=== PATIENT | male | born 1940 | race Caucasian/White ===

== ENCOUNTER 2020-10-01 14:25 | Inpatient (IN) | payer MEDICARE, OTHER ==
[2020-10-01 16:49] LABS: BASOPHIL 0.3 % (0-2); EOSINOPHIL 0 % (0-7); HCT 31.6 % (42.0-52.0); HGB 10.3 g/dl (13.2-18.0); LYMPHOCYTE 3.9 % (15-48); MCH 29.1 pg (25.0-31.0); MCHC 32.6 g/dL (32.0-36.0); MCV 89.3 fL (78.0-100.0); MONOCYTE 5.3 % (0-12); MPV 9.9 fL (6.0-9.5); NEUTROPHIL 89.2 % (41-80); NRBC 0; PLT 415 K/uL (150-400); RBC 3.54 M/uL (4.70-6.00); RDW 13.9 % (11.5-14.0); WBC 17.6 K/uL (4.0-10.5)
[2020-10-01 17:06] LABS: ALBUMIN 2.6 g/dL (3.4-5.0); ALKALINE PHOSHATASE 68 U/L (46-116); ALT 19 U/L (16-63); AST 33 U/L (15-37); BILIRUBIN - TOTAL 0.4 mg/dL (0.2-1.0); BUN 63 mg/dL (7-18); BUN/CREAT RATIO (CALC) 25.7 RATIO; C-REACTIVE PROTEIN >18.00 mg/dL (<=0.90); CHLORIDE 105 mmol/L (98-107); CO2 (BICARBONATE) 20 mmol/L (21-32); CREATININE 2.45 mg/dL (0.67-1.17); GLOBULIN (CALCULATION) 4.7 g/dL; GLUCOSE 123 mg/dL (74-106); LDH 601 U/L (85-227); MAGNESIUM 2.3 mg/dL (1.8-2.4); POTASSIUM 4.3 mmol/L (3.5-5.1); TOTAL PROTEIN 7.3 g/dL (6.4-8.2)
[2020-10-01 17:11] LABS: LACTIC ACID 1.1 mmol/L (0.4-1.9)
[2020-10-01 17:13] LABS: PRO-BNP 9437 pg/mL (<450)
[2020-10-01] MEDS ORDERED: VITAMIN B-121000 MC1 PO (20:18)
[2020-10-01] MEDS ORDERED: VITAMIN D250 MCG PO (20:18)
[2020-10-01] MEDS ORDERED: ANTIVERT12.5 MG PO (20:19)
[2020-10-01] MEDS ORDERED: SLOW FE142 MG PO (20:20)
[2020-10-01] MEDS ORDERED: ATIVAN1 MG PO (20:20)
[2020-10-01] MEDS ORDERED: ASPIRIN EC81 M1 PO (20:21)
[2020-10-01] MEDS ORDERED: SIMVASTATIN80 MG PO (20:22)
[2020-10-01] MEDS ORDERED: NITROQUIK SL0.4 MG SL (20:23)
[2020-10-01] MEDS ORDERED: PEPCID AC20 MG PO (20:26)
[2020-10-01] MEDS ORDERED: TENORMIN50 MG PO (20:27)
[2020-10-01] MEDS ORDERED: LOTREL 5-20 MG1 EACH PO (20:29)
--- NOTE | 2020-10-01 23:36 | NUR ---
PATIENT CHANGED FROM NC TO 50% VENTURI BY PREVIOUS SHIFT NURSE DURING REPORT DUE TO DESAT TO 75%, HAS PULLED OFF MASK OVER 12 TIMES REQUIRING STAFF REPLACING AND CONTINUOUS CHECKING. PLACED ON HIGH FLOW PER DR WANG REQUEST MAYBE HE WILL KEEP THAT ON BETTER, WAS DONE BUT SATS DID NOT MAINTAIN AND DROPPED TO 82% SO VENTURI WAS PLACED BACK ON AND SATS STAY 91-93% WHEN PATIENT LEAVES MASK ON. STAFF MEMBER PLACED AT BEDSIDE TO KEEP MASK ON. CONSTANTLY PULLING AT TUBING, TYING MASK TO O2 LINE AND PULLING MONITOR BOX APART. WILL CONTINUE WITH STAFF IN ROOM TO MONITOR
[2020-10-02 06:43] LABS: BASOPHIL 0.3 % (0-2); EOSINOPHIL 0 % (0-7); HCT 32.2 % (42.0-52.0); LYMPHOCYTE 3.3 % (15-48); MCH 29.2 pg (25.0-31.0); MCHC 31.1 g/dL (32.0-36.0); MCV 94.2 fL (78.0-100.0); MONOCYTE 1.8 % (0-12); MPV 10.3 fL (6.0-9.5); NRBC 0; PLT 391 K/uL (150-400); RBC 3.42 M/uL (4.70-6.00); RDW 14.6 % (11.5-14.0); WBC 14.6 K/uL (4.0-10.5)
[2020-10-02 07:02] LABS: NEUTROPHIL 93.2 % (41-80)
[2020-10-02 07:04] LABS: BUN/CREAT RATIO (CALC) 29.5 RATIO; C-REACTIVE PROTEIN 16.7 mg/dL (<=0.90); CREATININE 2.24 mg/dL (0.67-1.17); POTASSIUM 4.3 mmol/L (3.5-5.1)
--- NOTE | 2020-10-03 02:50 | NUR ---
PRACTITIONER ENTERED ROOM TO ASSESS PATIENT, O2 SATS RANGING FROM 74-89 BUT PATIENT RESTLESS AND THINKS HE'S DRIVING A CAR PUSHING ON GAS PEDAL. SHE STATED HE WAS DELERIUS AND SHE WAS TRANSFERRING HIM TO THE UNIT
--- NOTE | 2020-10-03 22:00 | NUR ---
PT OXYGEN SATURATION 77-80% ON HIGH FLOW 40L @ 100%, PT CLIMBING OUT OF BED, CONFUSED, ACTIVE HALLUCINATIONS AT THIS TIME, SPEAKING OUT OF HEAD, GARBLED SPEECH, CALLING OUT TO GOD, 2200 PO 1MG ATIVAN GIVEN CRUSHED IN APPLE SAUCE, BRILLIANDEER LOOPER CONSULTED REGARDING ACTIVITY AND OXYGEN SATURATION, BRILLIANDEER LOOPER SAID TO MONITOR FOR NEXT HOUR WHILE ATIVAN ABSORBS, GIVE IVP 0.5MG ATIVAN AFTER ONE HOUR IF PT DOES NOT CALM DOWN AND OXYGEN SATURATION STAYS LOW DUE TO ACTIVITY, WILL REASSESS IN ONE HOUR TIME
--- NOTE | 2020-10-04 01:07 | NUR ---
10/04/20 0045 PT PULLING OXYGEN OFF, STRIKING OUT AT SITTER WHEN SITTER ATTEMPTS TO REAPPLY OXYGEN, PT HAS HIGH FLOW STILL ON, PT SATING AT 84% RIVER CAPTAIN CALLED, RIVER CAPTAIN ORDERED HALODOL AND MITTENS TO BE PLACED ON PT, PT HAS SOCKS WITH COBAN WRAPPED UP TO ELBOWS, PT IS CALMING DOWN, HALODOL HELD AT THIS TIME, WILL CONTINUE TO MONITOR
--- NOTE | 2020-10-04 05:27 | NUR ---
AUTOMATIC PAINT SPRAYER OPERATOR CALLED, PT STILL STRIKING OUT WHEN PLACING OXYGEN BACK ON PT, RN ASKED AUTOMATIC PAINT SPRAYER OPERATOR ABOUT DRAWING LABS, AUTOMATIC PAINT SPRAYER OPERATOR TO NOT DRAW AT THIS TIME
[2020-10-04 09:44] LABS: BASOPHIL 0.3 % (0-2); EOSINOPHIL 0 % (0-7); HCT 35.3 % (42.0-52.0); HGB 11.4 g/dl (13.2-18.0); LYMPHOCYTE 2.6 % (15-48); MCHC 32.3 g/dL (32.0-36.0); MCV 89.8 fL (78.0-100.0); MONOCYTE 2.3 % (0-12); MPV 10.7 fL (6.0-9.5); NEUTROPHIL 92.8 % (41-80); NRBC 0; PLT 460 K/uL (150-400); RBC 3.93 M/uL (4.70-6.00); RDW 14.6 % (11.5-14.0); WBC 17.5 K/uL (4.0-10.5)
[2020-10-04 10:38] LABS: C-REACTIVE PROTEIN 15.1 mg/dL (<=0.90); CREATININE 1.96 mg/dL (0.67-1.17); PHOSPHORUS 4.9 mg/dL (2.6-4.7)
--- NOTE | 2020-10-04 10:50 | NUR ---
DR. SPEARS CALLED TO ROOM AT THIS TIME PT IS BECOMING INCREASINGLY RESTLESS, PULLING AT OXYGEN/ESSENTIAL LINES/TUBES, THROWING LEGS OVER BED. STATED NAME AND FOR THIS RN BUT ALL THE REST OF THE TIME GARBLED/CONFUSED SPEECH. ASKED MD IF HE THOUGHT SOME MENTAL STATUS CHANGES COULD BE R/T UNDERLYING DEMENTIA WORSENED BY IV STEROIDS, MD STATES POSSIBLE STEROID/HOSPITAL PSYCHOSIS BUT ALSO R/T MENTAL STATUS CHANGES R/T COVID. ALL VSS AT THIS TIME. P.O ATIVAN GIVEN. PER PREVIOUS RN REPORTS IV ATIVAN & IM GEODON/ZYPREXA HAVE MADE SYMPTOMS WORSE. MD TO ORDER DILAUDID TO SEE IF THAT HELPS CALM PT DOWN. UPDATE: 1120: AFTER IV DILAUDID 0.5 MG GIVEN PT RELAXED/CALM/SLEEPING. MUMBLES/AROUSES TO TOUCH THEN GOES BACK TO SLEEP. VITALS REMAIN STABLE. WILL CONTINUE TO MONITOR.
--- NOTE | 2020-10-04 14:10 | NUR ---
SPOKE WITH PT. DAUGHTER, GABI MCCARTHY. ADVISED THAT [facility] HAVE DECLINED COVID POS PATIENTS. DAUGHTER ONCE A FACILITY CLOSE TO HOME. ADVISED HER THAT [facility] IS STILL TAKING COVID +. PT. DAUGHTER AGREED FOR ME TO SEND A REFERRAL TO [facility]. REFERRAL SENT THROUGH [facility].
[2020-10-05 09:35] LABS: BASOPHIL 0.3 % (0-2); EOSINOPHIL 0 % (0-7); HCT 34.2 % (42.0-52.0); HGB 11.1 g/dl (13.2-18.0); LYMPHOCYTE 2.8 % (15-48); MCH 29.3 pg (25.0-31.0); MCHC 32.5 g/dL (32.0-36.0); MCV 90.2 fL (78.0-100.0); MPV 10.4 fL (6.0-9.5); NRBC 0; PLT 512 K/uL (150-400); RBC 3.79 M/uL (4.70-6.00); WBC 18.2 K/uL (4.0-10.5)
[2020-10-05 09:39] LABS: NEUTROPHIL 92.5 % (41-80)
[2020-10-05 09:53] LABS: CREATININE 1.81 mg/dL (0.67-1.17); POTASSIUM 4.5 mmol/L (3.5-5.1)
[2020-10-06 03:42] LABS: BASOPHIL 0.6 % (0-2); EOSINOPHIL 0 % (0-7); HCT 36.4 % (42.0-52.0); HGB 11.6 g/dl (13.2-18.0); LYMPHOCYTE 3.2 % (15-48); MCH 29.2 pg (25.0-31.0); MCHC 31.9 g/dL (32.0-36.0); MCV 91.7 fL (78.0-100.0); MONOCYTE 1.7 % (0-12); MPV 10.3 fL (6.0-9.5); NEUTROPHIL 91.9 % (41-80); NRBC 0; PLT 471 K/uL (150-400); RBC 3.97 M/uL (4.70-6.00); WBC 15.5 K/uL (4.0-10.5)
[2020-10-06 03:58] LABS: CREATININE 1.78 mg/dL (0.67-1.17); POTASSIUM 4.5 mmol/L (3.5-5.1)
--- NOTE | 2020-10-07 05:49 | NUR ---
PT RESTLESS AT THIS TIME, IN SOFT WRIST RESTRAINTS DUE TO PULLING DIRECTOR OF RECRUITING LEADS OFF, HIGH FLOW OXYGEN BEING PULLED OFF, PULLING AT HIS CANO DUDE WRANGLER NOTIFIED AD ORDERED RESTRAINTS AT THIS TIME. GUNNAR ONE TIME ORDER WAS ALSO PLACED AND GIVE TO PT. WILL CONTINUE TO MONITOR. PT CURRENTLY ON HIGH FLOW AT 100% AND A NON REBREATHER MASK OVE THAT AND IS SATTING AT 89% HEART RATE OF 77
--- NOTE | 2020-10-07 06:02 | NUR ---
0458- RT CALLED TO ASSESS PATIENT, PATIENT HAS BEEN RESTLESS AND PULLED OFF O2 MONITOR SAT 78%. PATIENT PLACED BACK HHFNC 40LPM/FIO2 100% AND ALSO PLACED ON 100% NRB. SAT IMPROVED TO 89% PULSE OX PROBE ON LT TOE. RN PLACED PATIENT IN ORDERED RESTRAINTS. CONTINUE TO MONITOR PATIENT
--- NOTE | 2020-10-07 06:18 | NUR ---
PT IN RESTRAINTS AT THIS TIME, CALL LIGHT DARRICK HERNANDEZ, BED ALARM ACTIVE, ASSESSED CIRCULATION
--- NOTE | 2020-10-08 01:03 | NUR ---
PT O2 SATURATION DROPPED TO 80, PT WAS MOUTH BREATHING, ATTEMPTED TO PLACE A NASAL CANNULA ON HER AND SHE WAS THROWING HER HANDS AND BEGAN GETTING COMBATIVE. WILL CONTINUE TO MONITOR
[2020-10-08 03:16] LABS: BASOPHIL 0.7 % (0-2); EOSINOPHIL 0.2 % (0-7); HCT 31.4 % (42.0-52.0); HGB 10.7 g/dl (13.2-18.0); LYMPHOCYTE 2.6 % (15-48); MCH 29.4 pg (25.0-31.0); MCHC 34.1 g/dL (32.0-36.0); MCV 86.3 fL (78.0-100.0); MONOCYTE 1.5 % (0-12); MPV 10.4 fL (6.0-9.5); NEUTROPHIL 89.3 % (41-80); NRBC 0; PLT 373 K/uL (150-400); RBC 3.64 M/uL (4.70-6.00); RDW 13.6 % (11.5-14.0)
[2020-10-08 03:21] LABS: WBC 18.2 K/uL (4.0-10.5)
[2020-10-08 03:33] LABS: C-REACTIVE PROTEIN 14.1 mg/dL (<=0.90); CREATININE 1.37 mg/dL (0.67-1.17); POTASSIUM 4.5 mmol/L (3.5-5.1)
[2020-10-10 05:36] LABS: BASOPHIL 0.1 % (0-2); EOSINOPHIL 0 % (0-7); HCT 35.9 % (42.0-52.0); HGB 11.5 g/dl (13.2-18.0); LYMPHOCYTE 3.4 % (15-48); MCH 28.8 pg (25.0-31.0); MCV 89.8 fL (78.0-100.0); MONOCYTE 2.6 % (0-12); MPV 10.8 fL (6.0-9.5); NEUTROPHIL 86.8 % (41-80); NRBC 0; PLT 389 K/uL (150-400); RDW 13.9 % (11.5-14.0)
[2020-10-10 05:38] LABS: WBC 32.3 K/uL (4.0-10.5)
[2020-10-10 06:54] LABS: BUN/CREAT RATIO (CALC) 38.7 RATIO; C-REACTIVE PROTEIN 9.5 mg/dL (<=0.90); CREATININE 1.37 mg/dL (0.67-1.17); POTASSIUM 4.3 mmol/L (3.5-5.1)
--- NOTE | 2020-10-10 12:15 | NUR ---
INTUBATION NOTE: DR. WANG, THIS RN, & RESP THERAPY AT BEDSIDE FOR INTUBATION. O2 SATS STAYING 70'S ON VAPOTHERM 40L/100% FIO2 & 100% NON-REBREATHER, RR 34, ALL OTHER VSS. 1218: RESP THERAPY BAGGING PT. ETOMIDATE 20 MG PUSHED/FLUSHED ORDERED PER MD. 1219: 100 MG SUCCINLYCHOLINE PUSHED/FLUSHED ORDERED PER MD. 1220: 171/38, 40 HR, 61% BEING BAGGED. 1221: DR. WANG USED GLIDESCOPE TO PLACE #8 ETT, 26 AT LIP, POSITIVE COLOR CHANGE ON CO2 DETECTOR. 1222: BREATH SOUNDS POSITIVE BILATERALLY. 1223: 197/79, 104, 90% BEING BAGGED. 1223: DIPRIVAN 20 MCG/KG/MIN STARTED AT THIS TIME = 6.6 ML/HR PER DR. WANG REQUEST TO START AT THIS RATE FOR SEDATION. 1227: #16 OGT PLACED AT THIS TIME PER MD ORDER. 1228: 168/88, 83, 94% ON VENT SETTING AC, RATE 20, 100% FIO2, PEEP 10. 1230: SEE DIPRIVAN CHARTING FOR SEDATION TITRATIONS. 1235: CXR HERE FOR ETT & OGT PLACEMENT CONFIRMATION. 1238: BILAT SOFT WRIST RESTRAINTS PLACED FOR PT ATTEMPTING TO PULL AT ESSENTIAL LINES/ETT. 1251: VERSED 5 MG IVP GIVEN PER MD ORDER FOR AGITATION. 1255: 95/45, 89 HR, 94%, 20 RR, 97.6 TEMP. WILL CONTINUE TO MONITOR CLOSELY, FULL REPORT GIVEN TO Varinder PAGE RN TO TAKE OVER CARE OF PT. SPOKE WITH PT FAMILY AFTER INTUBATION & UPDATED ON STATUS.
--- NOTE | 2020-10-10 23:25 | NUR ---
1120-CALLED [facility], REGUARDING PT TRANSFER, SPOKE TO JANNY, STATES ADDICTION SOCIAL WORKER WOULD BE PAGED.
--- NOTE | 2020-10-10 23:28 | NUR ---
CALLED SON EVETTE HAJI AND SPOKE WITH HIS ENDY HAJI TO INFORM PATIENT DECLINING AND NEED TO TRANSFER TO A DIFFERENT FACILITY. FAMILY OKED BY SECOND OFFICER TO COME SEE THE PATIENT. EDUCATED FAMILY ON RISK OF COVID AND PERCAUTIONS TO FOLLOW
--- NOTE | 2020-10-11 00:31 | NUR ---
0020-MARY ALICE REYNA SPOKE TO ENDY, NURSE PRACTIONER WITH [facility]. PT ACCEPTED, AWAITING [facility] TO CALL BACK WITH BED.
--- NOTE | 2020-10-11 00:35 | NUR ---
PT WITH BIVENTRICULAR DEFIBRILLATOR, MODEL # [id number] SERIAL # [id number]. CALLED [facility] FOR POSSIBLE INTERROGATION PER NURSE PRACTICTIONER VERBAL ORDER.
--- NOTE | 2020-10-11 00:36 | NUR ---
1215-PT FAMILY CALLED FOR TYPE OF PPM. DAUGHTER UNABLE TO GIVE INFORMATION. [facility] CALLED AND NOTIFIED. NURSE RETAIL PRICING COORDINATOR CALLED [facility]. INFO ON DEBRILLATOR GIVEN TO [facility].
--- NOTE | 2020-10-11 00:37 | NUR ---
1235-PTS FAMILY VISITING. UPDATED ON PATIENTS STATUS. MANAGER LEASING ON FLOOR, EXPLAINING RISK OF EXPOSURE TO COVID.
--- NOTE | 2020-10-11 00:49 | NUR ---
EVETTE HAJI, ENDY HAJI AND GABI MCCARTHY AT BEDSIDE, SPOKE TO POLY MCKEON AT BEDSIDE REGARDING PT STATUS. FAMILY DISCUSSING PLAN OF CARE FOR PATIENT. WILL UPDATE NURSES WHEN THEY COME TO A DECISION.
--- NOTE | 2020-10-11 01:11 | NUR ---
MIKE CORTEZ APRN AT BEDSIDE WITH FAMILY, PATIENT FAMILY WISHES FOR PATIENT TO BE DNR AND TO NOT TRANSFER PATIENT TO ANOTHER FACILITY.
--- NOTE | 2020-10-11 05:00 | NUR ---
DONNA FAMILY AND MIKE CORTEZ FISH FARMER OF PATIENT DESAT TO 83% AND HR CHANGED TO 100S, PATRICIA SUCTION FROM INLINE SUCTION.
--- NOTE | 2020-10-11 13:25 | NUR ---
8752 patient with no pulse, no respirations, no blood pressure. Pronounced by Dr. myers. family at bedside. [facility] IN [facility] CALLED
--- NOTE | 2020-10-11 13:52 | NUR ---
1318 BODY RELEASED TO [facility].
== END 2020-10-11 13:18 | disposition expired | DRG 208 ==
LOC: FER 14:25 → FMS 17:11 → FTCU 10-03 02:48 → FICU 10-10 09:28
PROVIDERS: Emergency Medicine; Internal Medicine; Nurse Practitioner; ADMIT Allergy & Immunology Allergy
PROC: 8E0ZXY6 Isolation (ICD-10-PCS; 2020-10-01)
PROC: XW033E5 Introduction of Remdesivir Anti-infective into Peripheral Vein, Percutaneous Approach, New Technology Group 5 (ICD-10-PCS; 2020-10-01)
PROC: XW13325 Transfusion of Convalescent Plasma (Nonautologous) into Peripheral Vein, Percutaneous Approach, New Technology Group 5 (ICD-10-PCS; principal; 2020-10-03)
PROC: 3E0333Z Introduction of Anti-inflammatory into Peripheral Vein, Percutaneous Approach (ICD-10-PCS; 2020-10-03)
PROC: 5A1935Z Respiratory Ventilation, Less than 24 Consecutive Hours (ICD-10-PCS; 2020-10-10)
PROC: 0BH17EZ Insertion of Endotracheal Airway into Trachea, Via Natural or Artificial Opening (ICD-10-PCS; 2020-10-10)
DX: U07.1 COVID-19 (principal); J12.82 Pneumonia due to coronavirus disease 2019; J96.01 Acute respiratory failure with hypoxia; G93.41 Metabolic encephalopathy; I31.9 Disease of pericardium, unspecified; N18.4 Chronic kidney disease, stage 4 (severe); E87.0 Hyperosmolality and hypernatremia; N17.9 Acute kidney failure, unspecified; E87.2 Acidosis; J98.2 Interstitial emphysema; I25.10 Atherosclerotic heart disease of native coronary artery without angina pectoris; J45.909 Unspecified asthma, uncomplicated; E86.0 Dehydration; Z66 Do not resuscitate; Z51.5 Encounter for palliative care; I46.9 Cardiac arrest, cause unspecified; E78.5 Hyperlipidemia, unspecified; F03.90 Unspecified dementia, unspecified severity, without behavioral disturbance, psychotic disturbance, mood disturbance, and anxiety; I12.9 Hypertensive chronic kidney disease with stage 1 through stage 4 chronic kidney disease, or unspecified chronic kidney disease; Z90.49 Acquired absence of other specified parts of digestive tract; Z95.1 Presence of aortocoronary bypass graft; Z78.1 Physical restraint status
CPT/HCPCS: 36415; 36430; 36600; 71045; 71250; 80048; 80053; 82728; 82803; 82962; 83605; 83615; 83735; 83880; 84100; 84145; 84484; 85025; 86140; 86850; 86900; 86901; 87040; 93005; 94002; 94010; 94640; C9399; J1100; J1170; J1630; J1650; J2020; J2060; J2250; J2543; J2704; J3010; J3486; J7030; J7050; J7060; J7070; P9017; U0002